=== PATIENT | male | born 2005 | race Caucasian/White ===

== ENCOUNTER 2025-04-06 11:50 | Emergency (ER) | payer OTHER, SELFPAY ==
--- NOTE | ~2025-04-06 | XR_ITS ---
EXAMINATION: XR ankle LT min 3V DATE: 04/06/2025 12:40 INDICATION: Left ankle injury TECHNIQUE: Anteroposterior, oblique, mortise, and lateral views of the left ankle were obtained. COMPARISON: None. FINDINGS: Alignment is normal. No fracture. Joint spaces are well maintained. Small left ankle joint effusion. Soft tissue swelling about the lateral malleolus. IMPRESSION: 1. Lateral ankle swelling and small ankle joint effusion with no osseous abnormality. Reviewed, dictated and finalized at location A. IMPRESSION: 1. Lateral ankle swelling and small ankle joint effusion with no osseous abnorm ality.
--- OUTSIDE RECORDS SUMMARY | 2025-04-06 11:52 | XMS_ITS | Clinical Summary ---
Author Organization [facility] Address [address] [place] [address] Care Team Providers Care Electric Fork Operator Name Role Phone Gavin Rider MD Primary Care Provider [phone] Allergies Active Allergy Reactions Criticality Noted Date Comments Ibuprofen Vomiting Low 12/15/2020 Medications No known medications Active Problems Problem Noted Date Diagnosed Date Derangement of lateral meniscus of right knee Assessment & Plan (08/26/2023 9:00 AM CDT): Patient's history exam would be consistent with a lateral meniscal tear or a stress fracture of the tibial plateau. I would recommend obtaining an MRI to evaluate the integrity of the structures initiate appropriate treatment. In the meantime the patient should avoid any aggressive or high impact activities with his leg. Retained foreign body of middle ear 07/08/2015 Overview (08/26/2023): Closed fracture of ulna 03/24/2013 Overview (08/26/2023): Other specified disorders of Eustachian tube, unspecified ear 08/01/2011 Non-functioning tympanostomy tube 08/01/2011 Surgical History Surgery Date Site/Laterality Comments TYMPANOSTOMY TUBE PLACEMENT Ear Pressure Equalization Tube, Insertion, Bilaterally - performed 09/27/[address] Thelma Nichols (Added by TW Conv) TYMPANOSTOMY TUBE PLACEMENT Ear Pressure Equalization Tube, Insertion, Bilaterally - performed by Dr. Arlyn Arellano 12/09/06 (Added by SHEKHAR Conv) [place] TONSILLECTOMY & ADENOIDEC PINO <AGE 11 Tonsillectomy With Adenoidectomy - performed 01/05/[address] Thelma Nichols (Added by SHEKHAR Conv) Family History Medical History Relation Name Comments No Known Problems Father No Known Problems Mother Relation Name Status Comments Father Mother Social History Tobacco Use Types Packs/Day Years Used Date Smoking Tobacco: Never Tobacco Cessation:Counseling Given: Not Answered Personal Safety Answer Date Recorded Have you ever been in or are you currently in a harmful physical or emotional relationship or is someone making you feel afraid or unsafe? 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 Gender Identity Not on file Sexual Orientation Not on file Obstetrics History Last Filed Vital Signs Vital Sign Reading Time Taken Comments Blood Pressure 118/76 08/26/2023 8:22 AM CDT Pulse 50 08/15/2023 8:05 AM CDT Temperature 36.4 C (97.6 F) 08/15/2023 8:05 AM CDT Respiratory Rate 16 08/15/2023 8:05 AM CDT Oxygen Saturation 99% 08/15/2023 8:05 AM CDT Inhaled Oxygen Concentration - - Weight 70.3 kg (155 lb) 08/15/2023 8:05 AM CDT Height 182.9 cm (6' 0.01) 08/26/2023 8:22 AM CD T Body Mass Index 21.02 08/15/2023 8:05 AM CDT Plan of Treatment Health Maintenance Due Date Last Done Comments Depression Screening 2004 Hepatitis C Screening 2004 HPV Vaccines (1 - Male 3-dos e series) 2019 Meningococcal B Vaccine (1 o f 2 - Standard) 2020 Regular Well Visit/Exam 18-64 2022 Covid-19 Vaccine (2 - 2023-2 5 season) 2024 07/06/2021 Influenza Vaccine (Season Ended) 2025 11/25/2013, 11/25/2012, 08/28/2010, Additional history exists DTaP/Tdap/Td Vaccine (6 - Td or Tdap) 09/25/2026 09/25/2016, 01/01/2011, 06/22/2005, Additional history exists Hepatitis B Screening Completed 06/22/2005 , 02/19/2005, 2004 Pneumococcal vaccine <65 Completed 006, 06/22/2005, 05/01/2005, Additional history exists Varicella Vaccines Completed 01/01/2011, 12/27/2005 Meningococcal Vaccine Completed 06/12/2022, 016 Insurance [facility] Care Teams Electric Fork Operator Relationship Specialty Start Date End Date Gavin Rider MD [address] [place] [phone] PCP - General 01/05/21
--- OUTSIDE RECORDS SUMMARY | 2025-04-06 11:52 | XMS_ITS | Clinical Summary ---
Author Organization [facility] [employer] Address [address] [place] [address] Care Team Providers Care Cinema Operator Name Role Phone Brandon Roman MD Primary Care Provider [phone] Source Comments [facility],non-owned Affiliates and Associated Physician Practices is amultiple site organization consisting of ambulatory clinics and hospital sitesin [place], [place] and [place]. This disclosure is being madepursuant to the Care Everywhere program and may not contain all information available regarding this patient. Last updated 18.[facility] [employer] Allergies Active Allergy Reactions Criticality Noted Date Comments Levsin Other High 01/19/2011 Tremors, low bp Ibuprofen Urticaria,Nausea and /or Vomiting 01/19/2011 Medications * Be aware that medications may not be up to date on this document. Alwaysverify current medications with the patient. No known medications Active Problems Problem Noted Date Diagnosed Date Periumbilical abdominal pain 12/07/2015 Dyspepsia 12/07/2015 Retained foreign body of middle ear 07/08/2015 Overview (09/11/2015): Vomiting 12/02/2013 Closed fracture of ulna 03/24/2013 Overview (08/04/2015): Non-functioning tympanostomy tube 08/01/2011 Dysfunction of eustachian tube 08/01/2011 Otitis media 02/06/2011 Eustachian tube dysfunction Evaluation of hearing impairment Dizzy spells Family History Medical History Relation Name Comments Anesthesia Reaction Father nausea/v omiting, difficulty waking up--wih knee surgery ended up staying overnight Childhood Hearing Disorder Father IBS Father Anesthesia Reaction Maternal Grandmother coded IBS Mother Stomach ulcers Mother Crohn's Disease Paternal Aunt IBS Paternal Grandmother Allergies - Food Neg Hx Bleeding Disorders Neg Hx Celiac Disease Neg Hx Relation Name Status Comments Father Maternal Grandmother Mother Paternal Aunt Paternal Grandmother Social History Tobacco Use Types Packs/Day Years Used Date Smoking Tobacco: Passive Smo ke Exposure - Never Smoker Smokeless Tobacco: Never Alcohol Use Standard Drinks/Week Comments Never 0 (1 standard drink = 0.6 oz pur e alcohol) Sex and Gender Information Value Date Recorded Sex Assigned at Not on file Legal Sex Male 6:10 AM DRY ROOM ATTENDANT Gender Identity Not on file Sexual Orientation Not on file Last Filed Vital Signs Vital Sign Reading Time Taken Comments Blood Pressure 110/70 05/20/2021 7:09 PM CDT Pulse 70 05/20/2021 7:09 PM CDT Temperature 36.8 C (98.3 F) 05/20/2021 7:09 PM CDT Respiratory Rate 12 05/20/2021 7:09 PM CDT Oxygen Saturation 100% 07/08/2015 12: 05 PM CDT Inhaled Oxygen Concentration - - Weight 64.7 kg (142 lb 10.2 oz) 05/20/2021 7:09 PM CDT Height 175.3 cm (5' 9) 09/04/2020 12:4 2 PM DRY ROOM ATTENDANT Body Mass Index - - Plan of Treatment Health Maintenance Due Date Last Done Comments HIV SCREENING 2019 HPV VACCINE (1 - Male 3-dose series) 2019 MENINGOCOCCAL (Group B) VACC INE SHARED DECISION-MAKING (1 of 2 - Standard) 2020 HEPATITIS C SCREENING 12/18/2022 DTAP/TDAP/TD VACCINES (1 - Tdap) 2023 HEPATITIS B VACCINE (1 of 3 - 19+ 3-dose series) 2023 COVID-19 VACCINE (1 - 2023-2 5 season) 2024 DEPRESSION SCREENING 11/04/2024 INFLUENZA VACCINE (Season Ended) 2025 ZOSTER VACCINE (1 of 2) 2054 HIB VACCINE Aged Out No longer eligi ble based on patient's age to complete this topic MENINGOCOCCAL GROUPS A/C/Y/W VACCINE Aged Out No longer eligible b ased on patient's age to complete this topic PNEUMOCOCCAL VACCINE Aged Out No long er eligible based on patient's age to complete this topic Medical Devices Implanted Type Area Trade Mark Attorney Device Identifier Shelf Expiration Date Model / Serial / Lot Disc Epi Lamina Implanted:Qty: 1 on 07/08/2015 by Val Dockery MD at [facility] Right: Ear [employer] 06/02/2017 [id number] / / [id number] Insurance [facility] Address: [address] [address] [facility] Care Teams Cinema Operator Relationship Specialty Start Date End Date Brandon Roman MD [address] [address] PCP - General Pediatrics 01/04/20
--- OUTSIDE RECORDS SUMMARY | 2025-04-06 11:52 | XMS_ITS | Referral Summary ---
Author Organization 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
[2025-04-06 11:57] VITALS: BP 120/73; PULSE 73; RESP 18; TEMP 36.7; O2SAT 98
--- NOTE | 2025-04-06 12:21 | ED.GENADULT ---
HPI - General Adult General Chief complaint: Extremity Injury, Lower Stated complaint: L ANKLE INJURY Time Seen by Provider: 04/06/25 12:00 History of Present Illness HPI narrative: 19-year-old male present to the emergency department for evaluation for left ankle pain. Patient reports he was playing basketball last night and rolled the left ankle. Patient reports immediate pain after the injury and was unable to keep playing basketball. Patient denies striking head denies loss conscious. Patient denies any proximal tib-fib or left foot pain. Patient's primary site of injury bill his left lateral ankle. Patient does have associated swelling. Related Data Allergies Allergy/AdvReac Type Severity Reaction Status Date / Time hyoscyamine Allergy Unknown Unknown Verified 04/06/25 11:51 ibuprofen Allergy Unknown Unknown Verified 04/06/25 11:51 Review of Systems Review of Systems: All systems reviewed & are unremarkable except as noted in HPI and below Exam Narrative: APPEARANCE: Well appearing, no pain, no distress, well-nourished. HEAD: normocephalic, atraumatic. EYES: PERRLA/EOMI, conjunctivae clear. THROAT: Pharynx clear, no exudate. NECK: Supple. No adenopathy, no masses. RESPIRATORY: Airway patent, respirations nonlabored. Clear to auscultation bilaterally, no rales, rhonchi, wheezing. CARDIOVASCULAR: Regular rate and rhythm without murmurs rubs or gallops. ABDOMINAL: Soft, nontender, nondistended, normal bowel sounds MUSCULOSKELETAL: Left lateral ankle tenderness and edema. No proximal tib-fib tenderness and no tenderness to left foot NEURO: Alert. Cranial nerves II through XII intact. Good gait. Good coordination SKIN: Warm, dry. Normal Color Course Vital Signs Vital signs: Vital Signs Temperature 98.1 F 04/06/25 11:57 Pulse Rate 73 04/06/25 11:57 Respiratory Rate 18 04/06/25 11:57 Blood Pressure 120/73 04/06/25 11:57 Pulse Oximetry 98 04/06/25 11:57 Temperature 98.1 F 04/06/25 11:57 Pulse Rate 73 04/06/25 11:57 Respiratory Rate 18 04/06/25 11:57 Blood Pressure 120/73 04/06/25 11:57 Pulse Oximetry 98 04/06/25 11:57 Medical Decision Making [facility] Narrative Medical decision making narrative: 19-year-old male present to the emergency department for evaluation for left ankle pain. X-rays were negative for acute fracture dislocation. Patient has no other tenderness to left foot or left proximal tib-fib. Suspect ankle sprain over fracture. Patient was provided Bill wrap for comfort and crutches for limited weight-bearing. Patient was courage to take Tylenol and provide pain control and have close follow-up with primary care physician. All questions concerns were addressed. Differential Diagnosis Differential Diagnosis: Ankle sprain, ankle fracture Vital Signs Vital Signs: Vital Signs Temperature 98.1 F 04/06/25 11:57 Pulse Rate 73 04/06/25 11:57 Respiratory Rate 18 04/06/25 11:57 Blood Pressure 120/73 04/06/25 11:57 Pulse Oximetry 98 04/06/25 11:57 Temperature 98.1 F 04/06/25 11:57 Pulse Rate 73 04/06/25 11:57 Respiratory Rate 18 04/06/25 11:57 Blood Pressure 120/73 04/06/25 11:57 Pulse Oximetry 98 04/06/25 11:57 Imaging Data Radiologist's impression: Impressions Ankle X-Ray 04/06/25 13:03 IMPRESSION: 1. Lateral ankle swelling and small ankle joint effusion with no osseous abnormality. Discharge Plan Discharge Clinical Impression: Ankle sprain and strain Patient Disposition: Home Condition: Stable Instructions: Antibiotic Form, Ankle Sprain (DC), Crutch Instructions (ED) Additional Instructions: Bill wrap for comfort. Crutches for limited weight-bearing for the next 3-5 days. Have close follow-up with your primary care physician. Tylenol and ibuprofen for pain control. If you have any worsening symptoms then please call or return to the emergency department. Patient Language: Divehi Follow-up/Referrals: William,MD Chon [Non-Staff] -
--- OUTSIDE RECORDS SUMMARY | 2025-04-06 12:38 | XMS_ITS | Referral Summary ---
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
--- OUTSIDE RECORDS SUMMARY | 2025-04-06 12:38 | XMS_ITS | Clinical Summary ---
Author Organization [facility] Address [address] [place] [address] Care Team Providers Care Claims Supervisor Name Role Phone Gavin Rider MD Primary Care Provider [phone] Allergies Active Allergy Reactions Criticality Noted Date [...] Arlyn Arellano 12/09/06 (Added by SHEKHAR Conv) [place] TONSILLECTOMY & ADENOIDEC PINO <AGE 12 Tonsillectomy [...] on file Legal Sex Male 12:03 AM CLIN ASST Gender Identity Not on file Sexual Orientation [...] 12/27/2005 Meningococcal Vaccine Completed 06/12/2022, 016 Insurance [facility] Care Teams Claims Supervisor Relationship Specialty Start Date End Date Gavin Rider MD [address] [address] [id number] PCP - General 01/05/21
--- OUTSIDE RECORDS SUMMARY | 2025-04-06 12:38 | XMS_ITS | Clinical Summary ---
Author Organization [facility] [employer] Address [address] [facility] [place] [address] Care Team Providers Care Wafer Fab Technician Name Role Phone Brandon Roman MD Primary Care Provider [phone] Source Comments [facility],non-owned Affiliates and Associated Physician Practices is amultiple site organization consisting of ambulatory clinics and hospital sitesin [place], [place], [place] and [place]. This disclosure is being madepursuant to the Care Everywhere program and may not contain all information available regarding this patient. 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 Gender Identity Not on file Sexual Orientation [...] cm (5' 9) 09/04/2020 12:4 2 PM OIL DEVELOPER Body Mass Index - - Plan of [...] this topic Medical Devices Implanted Type Area Bmx Rider Device Identifier Shelf Expiration Date Model / Serial / Lot Disc Epi Lamina Implanted:Qty: 1 on 07/08/2015 by Val Dockery MD at [facility] Right: Ear [employer] 06/02/2017 [id number] / / [id number] Insurance [facility] Address: [address] [address] [facility] Care Teams Wafer Fab Technician Relationship Specialty Start Date End Date Brandon Roman MD [address] [address] PCP - General Pediatrics 01/04/20
--- OUTSIDE RECORDS SUMMARY | 2025-04-06 12:38 | XMS_ITS | Continuity of Care Document ---
Author Name [facility] Organization [facility] Care Team Providers Care Loss Prevention/Safety District Manager Name Role Phone [facility] Unavailable Unavailable Vital Signs Combined list of inpatient and outpatient Vital Signs from Department of Defense and Veterans Affairs, ranging from 12 months to all on record, depending upon the facility. Vital Sign Value Date Comments Source Peripheral Pulse Rate 72 bpm 07/08/2024 11:37:[address] [place] [address] Systolic Blood Pressure 125 mm[Hg] 07/08/2024 11:37:[address] [place] [address] Diastolic Blood Pressure 72 mm[Hg] 07/08/2024 11:37:[address] [place] [address] Encounters Combined list of: 1) Encounters from Department of Veterans Affairs facilities going backup to the last 18 months, not all ID inpatient encounters are included; 2) Encounters from the Department of [facility] facilities going backup to 280 months. Location Location Details Encounter Type Encounter Number Reason For Visit Attending Provider ADM Date DC Date Status Disposition Source Ambulator y Pharmacy [facility] [id number] 06/16 Ambulat ory Pharmac y [address] [place] [address] Outside Documentat ion Only [id number] 06/16 Discharge Disposition: Home or Self Care [address] [place] [address] Between Visit [id number] 06/16 Discharge Disposition: Home or Self Care [facility] [address] [place] Readiness [id number] 07/07 Discharge Disposition: Home or Self Care [address] [place] [address] Procedures Combined list of: 1) Procedures from Department of Veterans Affairs facilities going back up to thelast 18 months, not all ID non-surgical procedures are included; 2) All procedures from the Department of [facility] facilities. Procedure Procedure Type Code Date Perfomer Comments Sourc e No data available for this section Ambulatory P harmacy Social History Combined list of available smoking, tobacco, and other social history from Department of Defense and Veterans Affairs facilities. Social History Type Response Date Comment [facility] e Sex Representation Male (finding) 06/16/2024 Un known Organization Sexual Orientation Ambula tory Pharmacy Gender identity Ambulator y Pharmacy Assessment and Plan Combined list of future care activities from Department of Defense and Veterans Affairs facilities (e.g., assessment and plan notes, appointments, orders, and referrals). Additional future care activities may be listed in the Plan of Care section. Result Assessment and Plan Date Source Assessment and Plan Extracted from:Title : Education Note Author: AMADEO COX Date: 07/08/24 04/06/[address] [place] [address] Functional Status Combined list of recent functional and cognitive assessments recorded at [facility] ([facility] Functional [place] Measurement (FIM) Scale: 1 = Total Assistance (Subject = 0% +), 2 = Maximal Assistance (Subject = 25% +), 3 = Moderate Assistance (Subject = 50% +), 4 = Minimal Assistance (Subject = 75% +), 5 = Supervision, 6 = Modified [place] (Device), 7 = Complete [place] (Timely, Safely). Assessment Date/Time Source Assessment Type Assessment Skill Assessment Score Assessment Details No data available for this section
== END 2025-04-06 13:21 | disposition home or self-care (01) ==
PROVIDERS: Emergency Provider Emergency Medicine
DX: S93.402A Sprain of unspecified ligament of left ankle, initial encounter (principal); X50.0XXA Overexertion from strenuous movement or load, initial encounter; Y93.67 Activity, basketball
CPT/HCPCS: 73610; 99283

== ENCOUNTER 2025-07-13 09:54 | Emergency (ER) | payer OTHER, SELFPAY ==
--- NOTE | ~2025-07-13 | XR_ITS ---
EXAMINATION: XR shoulder LT min 2V DATE: 07/13/2025 10:34 INDICATION: Injured 2 weeks ago. Contusion TECHNIQUE: 5 images of the left shoulder were obtained. COMPARISON: None FINDINGS: No fracture. No dislocation of the left humeral head. Bone mineralization is within normal limits. Left AC separation. IMPRESSION: 1. Left acromioclavicular separation with adjacent soft tissue swelling. 2. No fracture. Reviewed, dictated and finalized at location Q.
[2025-07-13 10:11] VITALS: BP 131/79; PULSE 52; RESP 16; TEMP 36.6; O2SAT 98
--- OUTSIDE RECORDS SUMMARY | 2025-07-13 11:11 | XMS_ITS | Clinical Summary ---
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 Gender Identity Not on file Sexual Orientation [...] 2023-2 5 season) 2024 07/06/2021 Influenza Vaccine (#1) 2025 4, 11/25/2012, 08/28/2010, Additional history exists DTaP/Tdap/Td Vaccine (6 - Td or Tdap) 09/25/2026 09/25/2016, 01/01/2011, 06/22/2005, Additional history exists Hepatitis B Screening Completed 06/22/2005 , 02/19/2005, 2004 Pneumococcal vaccine <65 Completed 006, 06/22/2005, 05/01/2005, Additional history exists Varicella Vaccines Completed 01/01/2011, 12/27/2005 Meningococcal Vaccine Completed 06/12/2022, 016 Insurance [facility] Care Teams Figurine Maker Relationship Specialty Start Date End Date Gavin Rider MD [address] [place] [phone] PCP - General 01/05/21
--- OUTSIDE RECORDS SUMMARY | 2025-07-13 11:11 | XMS_ITS | Clinical Summary ---
Author Organization [facility] [employer] Address [address] [facility] [address] Care Team Providers Care Mission Support Specialist Name Role Phone Brandon Roman MD Primary Care Provider [phone] Source Comments [facility],non-owned Affiliates and Associated Physician Practices is amultiple site organization consisting of ambulatory clinics and hospital sitesin [place], [place], [place] and [place]. This disclosure is being madepursuant to the Care Everywhere program and may not contain all information available regarding this patient. 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 Gender Identity Not on file Sexual Orientation [...] cm (5' 9) 09/04/2020 12:4 2 PM AUTOMOTIVE SERVICE PROFESSIONAL Body Mass Index - - Plan of Treatment Health Maintenance Due Date Last Done Comments HIV SCREENING 2019 HPV VACCINE (1 - Male 3-dose series) 2019 MENINGOCOCCAL (Group B) VACC INE SHARED DECISION-MAKING (1 of 2 - Standard) 2020 HEPATITIS C SCREENING 12/18/2022 DTAP/TDAP/TD VACCINES (1 - Tdap) 2023 HEPATITIS B VACCINE (1 of 3 - 19+ 3-dose series) 2023 DEPRESSION SCREENING 11/04/2024 COVID-19 VACCINE (1 - 2023-2 5 season) 2025 INFLUENZA VACCINE (#1) 2025 ZOSTER VACCINE (1 of 2) 2054 HIB VACCINE Aged Out No longer eligi ble based on patient's age to complete this topic MENINGOCOCCAL GROUPS A/C/Y/W VACCINE Aged Out No longer eligible b ased on patient's age to complete this topic PNEUMOCOCCAL VACCINE Aged Out No long er eligible based on patient's age to complete this topic Medical Devices Implanted Type Area Diversional Therapist'S Assistant Device Identifier Shelf Expiration Date Model / Serial / Lot Disc Epi Lamina Implanted:Qty: 1 on 07/08/2015 by Val Dockery MD at [facility] Right: Ear [employer] 06/02/2017 [id number] / / [id number] Insurance [facility] Address: [address] [address] [facility] Care Teams Mission Support Specialist Relationship Specialty Start Date End Date Brandon Roman MD [address] [address] PCP - General Pediatrics 01/04/20
--- NOTE | 2025-07-13 12:56 | ED.GENADULT ---
HPI - General Adult General Chief complaint: Extremity Injury, Upper Stated complaint: L shoulder pain Time Seen by Provider: 07/13/25 11:47 History of Present Illness HPI narrative: 19-year-old male presents to the emergency department for evaluation for left shoulder injury that occurred while doing a slip and slide while at [employer]. Patient states he did collide with a another Slider. Patient denies striking his head denies loss consciousness. Patient does have limited range of motion of the left shoulder. Related Data Allergies Allergy/AdvReac Type Severity Reaction Status Date / Time hyoscyamine Allergy Unknown Unknown Verified 04/06/25 11:51 ibuprofen Allergy Unknown Unknown Verified 04/06/25 11:51 Review of Systems Review of Systems: All systems reviewed & are unremarkable except as noted in HPI and below Exam Narrative: APPEARANCE: Well appearing, no pain, no distress, well-nourished. HEAD: normocephalic, atraumatic. EYES: PERRLA/EOMI, conjunctivae clear. NOSE: Normal no drainage EARS:TMS clear with good light reflex. THROAT: Pharynx clear, no exudate. NECK: Supple. No adenopathy, no masses. RESPIRATORY: Airway patent, respirations nonlabored. Clear to auscultation bilaterally, no rales, rhonchi, wheezing. CARDIOVASCULAR: Regular rate and rhythm without murmurs rubs or gallops. ABDOMINAL: Soft, nontender, nondistended, normal bowel sounds MUSCULOSKELETAL: Tenderness to left shoulder NEURO: Alert. Cranial nerves II through XII intact. Good gait. Good coordination SKIN: Warm, dry. Normal Color Course Vital Signs Vital signs: Vital Signs Temperature 97.8 F 07/13/25 10:11 Pulse Rate 52 L 07/13/25 10:11 Respiratory Rate 16 07/13/25 10:11 Blood Pressure 131/79 07/13/25 10:11 Pulse Oximetry 98 07/13/25 10:11 Oxygen Delivery Room Air 07/13/25 10:11 Temperature 97.8 F 07/13/25 10:11 Pulse Rate 52 L 07/13/25 10:11 Respiratory Rate 16 07/13/25 10:11 Blood Pressure 131/79 07/13/25 10:11 Pulse Oximetry 98 07/13/25 10:11 Oxygen Delivery Room Air 07/13/25 10:11 Medical Decision Making [facility] Narrative Medical decision making narrative: 19-year-old male presents emergency department for evaluation for left shoulder injury. X-ray does show AC joint separation. Patient does have slow but full range of motion of the left shoulder. Patient will be provided sling for comfort and provided follow-up with Orthopedics. All questions concerns were addressed patient was well-appearing at time of discharge. Differential Diagnosis Differential Diagnosis: Shoulder fracture, shoulder dislocation, AC joint separation, shoulder strain, rotator cuff injury Vital Signs Vital Signs: Vital Signs Temperature 97.8 F 07/13/25 10:11 Pulse Rate 52 L 07/13/25 10:11 Respiratory Rate 16 07/13/25 10:11 Blood Pressure 131/79 07/13/25 10:11 Pulse Oximetry 98 07/13/25 10:11 Oxygen Delivery Room Air 07/13/25 10:11 Temperature 97.8 F 07/13/25 10:11 Pulse Rate 52 L 07/13/25 10:11 Respiratory Rate 16 07/13/25 10:11 Blood Pressure 131/79 07/13/25 10:11 Pulse Oximetry 98 07/13/25 10:11 Oxygen Delivery Room Air 07/13/25 10:11 Imaging Data Radiologist's impression: Impressions Shoulder X-Ray 07/13/25 10:38 IMPRESSION: 1. Left acromioclavicular separation with adjacent soft tissue swelling. 2. No fracture. Discharge Plan Discharge Clinical Impression: AC joint derangement Patient Disposition: Home Condition: Stable Instructions: Antibiotic Form, Acromioclavicular Separation (ED), How to Use a Sling (ED) Additional Instructions: Sling for comfort. Tylenol for pain control. Flexeril as needed for muscle spasm. Have close follow-up with Orthopedics. Patient Language: Yakut Prescriptions: New cyclobenzaprine 10 mg tablet 10 mg PO BID PRN (Reason: muscle spasm) Qty: 14 0RF Follow-up/Referrals: Tigre Maldonado MD [Physician, Orthopedics] UNKNOWN,DOCTOR [Primary Care Provider]
--- OUTSIDE RECORDS SUMMARY | 2025-07-13 13:35 | XMS_ITS | Clinical Summary ---
Author Organization [facility] Address [address] [place] [address] Care Team Providers Care Superintendent Generating Plant Name Role Phone Gavin Rider MD Primary Care Provider Allergies Active Allergy Reactions Criticality Noted Date [...] Arlyn Arellano 12/09/06 (Added by SHEKHAR Conv) CT TONSILLECTOMY & ADENOIDEC PINO <AGE 11 Tonsillectomy [...] on file Legal Sex Male 12:03 AM JORDAN MAN Gender Identity Not on file Sexual Orientation [...] 12/27/2005 Meningococcal Vaccine Completed 06/12/2022, 016 Insurance [facility] Care Teams Superintendent Generating Plant Relationship Specialty Start Date End Date Gavin Rider MD [address] [id number] PCP - General 01/05/21
--- OUTSIDE RECORDS SUMMARY | 2025-07-13 13:35 | XMS_ITS | Clinical Summary ---
Author Organization [facility] Address [address] [place] [address] Care Team Providers Care Gas Appliance Adjuster Name Role Phone Brandon Roman MD Primary Care Provider [phone] Source Comments [facility],non-owned Affiliates and Associated Physician Practices is amultiple site organization consisting of ambulatory clinics and hospital sitesin [place], [place], [place] and [place]. This disclosure is being madepursuant to the Care Everywhere program and may not contain all information available regarding this patient. 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 Gender Identity Not on file Sexual Orientation [...] cm (5' 9) 09/04/2020 12:4 2 PM HEALTH CONSULTANT Body Mass Index - - Plan of [...] this topic Medical Devices Implanted Type Area Clay Machine Operator Device Identifier Shelf Expiration Date Model / Serial / Lot Disc Epi Lamina Implanted:Qty: 1 on 07/08/2015 by Val Dockery MD at [facility] Right: Ear [employer] 06/02/2017 [id number] / / [id number] Insurance [facility] Address: [address] [address] [facility] Care Teams Gas Appliance Adjuster Relationship Specialty Start Date End Date Brandon Roman MD [address] [address] PCP - General Pediatrics 01/04/20
== END 2025-07-13 13:24 | disposition home or self-care (01) ==
PROVIDERS: Emergency Provider Emergency Medicine
DX: S43.102A Unspecified dislocation of left acromioclavicular joint, initial encounter (principal); W51.XXXA Accidental striking against or bumped into by another person, initial encounter
CPT/HCPCS: 73030; 99283; A4565

== ENCOUNTER 2025-09-28 23:33 | Emergency (ER) | payer OTHER, SELFPAY ==
[2025-09-28 23:37] VITALS: BP 131/78; PULSE 60; RESP 16; TEMP 36.3; O2SAT 100
--- NOTE | 2025-09-29 00:10 | ED.MALEGU ---
HPI - Male Genitourinary General Chief complaint: Urogenital-Male Stated complaint: Wanting STD testing Time Seen by Provider: 09/28/25 23:57 History of Present Illness HPI Narrative: Patient is a 19-year-old male who presents to the ER with concerns for STDs. He reports he had a previous partner call him and tell him she tested positive for herpes. Patient denies any genital sores, urinary symptoms, penile drainage, abdominal pain, or back pain. He denies any medical history relevant to this ER visit. Related Data Allergies Allergy/AdvReac Type Severity Reaction Status Date / Time hyoscyamine Allergy Unknown Unknown Verified 04/06/25 11:51 ibuprofen Allergy Unknown Unknown Verified 04/06/25 11:51 Review of Systems Review of Systems: All systems reviewed & are unremarkable except as noted in HPI and below Exam Narrative: GENERAL: Well appearing, well-nourished, non-toxic, in no acute distress. HEAD: Normocephalic, atraumatic. NECK: Supple. No adenopathy, no masses. RESPIRATORY: Airway patent, respirations nonlabored. Clear to auscultation bilaterally, no rales, rhonchi, wheezing. CARDIOVASCULAR: Regular rate and rhythm without murmurs, rubs, or gallops. Peripheral pulses 2+ and equal bilaterally. ABDOMINAL: Soft, nontender, nondistended, no hepatosplenomegaly. Normoactive BS. MUSCULOSKELETAL: Moves all extremities. Strength/ROM intact without gross deformities. SKIN: Warm, dry, normal color. No rashes. NEURO: A&O X3. Speech clear. Cranial nerves II-XII intact. No ataxic movements. PSYCHIATRIC: Appropriate mood and affect. Normal interaction. Course Vital Signs Vital signs: Vital Signs Temperature 36.3 C L 09/28/25 23:37 Pulse Rate 60 09/28/25 23:37 Respiratory Rate 16 09/28/25 23:37 Blood Pressure 131/78 09/28/25 23:37 Pulse Oximetry 100 09/28/25 23:37 Oxygen Delivery Room Air 09/28/25 23:37 Temperature 36.3 C L 09/28/25 23:37 Pulse Rate 60 09/28/25 23:37 Respiratory Rate 16 09/28/25 23:37 Blood Pressure 131/78 09/28/25 23:37 Pulse Oximetry 100 09/28/25 23:37 Oxygen Delivery Room Air 09/28/25 23:37 MDM - Male Genitourinary MDM Narrative Medical decision making narrative: Patient is a 19-year-old male who presents to the ER with concerns for STDs. He reports he had a previous partner call him and tell him she tested positive for herpes. Patient denies any genital sores, urinary symptoms, penile drainage, abdominal pain, or back pain. He denies any medical history relevant to this ER visit. Labs Ordered: GC chlamydia, Trichomonas Diagnosis: Concern for STDs, positive herpes contact Patient Education/Shared MDM: Management of herpes was explained to patient. There is no method of testing for herpes at this facility, as pt has no symptoms at this time. He is opting to submit a urine sample for STD testing but would like to follow-up with results as an outpatient since he is currently asymptomatic. Patient strongly advised to maintain hydration status upon discharge and establish care/follow-up with a PCP as soon as possible. He will not be discharged home with any new prescriptions. Patient was offered a prescription for condoms but declined. Strict return precautions provided. Patient verbalized understanding and is in agreement with plan. Vital signs stable at time of discharge. All questions answered. Differential Diagnosis Differential diagnosis: Likely genital herpes simplex and other (Chlamydia, gonorrhea, Trichomonas) Discharge Plan Discharge Clinical Impression: At risk for sexually transmitted disease due to partner with genital herpes, Encounter for assessment of STD exposure, Exposure to sexually transmitted disease (STD) Patient Disposition: Home Condition: Stable Instructions: Antibiotic Form, Genital Herpes Infection (ED) Additional Instructions: Please return to the ER with any worsening symptoms. Follow-up with a primary care provider as soon as possible to establish care and follow-up on results. Please follow-up on the monster and return to the ER if any of your tests are positive. Patient Language: Thai Prescriptions: No Action cyclobenzaprine 10 mg tablet 10 mg PO BID PRN (Reason: muscle spasm) Qty: 14 0RF Follow-up/Referrals: Justina Lamb DO [Physician, Family Practice] Referral Note: primary care provider PHYSICIAN,LEARNING AND DEVELOPMENT MANAGER [Primary Care Provider, Internal Medicine] Stand Alone Forms: Work/School Release IP Time of Disposition: 00:17
[2025-09-29 00:41] VITALS: BP 126/75; PULSE 64; RESP 17; O2SAT 100
[2025-09-29 01:00] VITALS: BP 126/75; PULSE 64; RESP 17; O2SAT 100
[2025-09-29 01:49] LABS: Trichomonas Vag PCR NOT DETECTED (NOT DETECTE)
== END 2025-09-29 01:01 | disposition home or self-care (01) ==
LOC: ANHED 09-29 00:23
PROVIDERS: Emergency Provider Registered Nurse
DX: Z11.3 Encounter for screening for infections with a predominantly sexual mode of transmission (principal); Z20.2 Contact with and (suspected) exposure to infections with a predominantly sexual mode of transmission
CPT/HCPCS: 87491; 87591; 87661; 99283